=== PATIENT | female | born 1935 | race Caucasian/White ===

== ENCOUNTER 2017-05-19 03:53 | Observation (INO) | payer MEDICARE ==
[2017-05-19 04:18] LABS: BASO % 0.5 % (0-6); EOS % 3.7 % (0-6); GRAN % 56.6 % (47-80); HEMATOCRIT 44.5 % (35.0-47.0); HEMOGLOBIN 14.8 gm/dl (11.6-16.0); LYMPH % 26.3 % (16-45); MEAN CELL VOLUME 90.1 fl (81-97); MEAN CORPUSCULAR HEMOGLOBIN 29.9 pg (27-33); MEAN CORPUSCULAR HGB CONC 33.3 g/dl (32-36); MEAN PLATELET VOLUME 10.2 fl (7.4-10.4); MONO % 12.9 % (0-9); PLATELET COUNT 198 K/uL (130-400); RED BLOOD COUNT 4.94 M/uL (3.80-5.40); RED CELL DISTRIBUTION WIDTH 12.9 % (11.5-14.5); WHITE BLOOD COUNT W/O DIFF 5.8 K/uL (4.2-12.2)
[2017-05-19] MEDS: NITROGLYCERIN 0.4MG SL TABLET #25 BTL SL PRN ×2 (04:20→04:26)
--- NOTE | 2017-05-19 04:24 | Emergency Department Record ---
History of Present Illness - General Chief Complaint: Chest Pain Stated Complaint: CHEST PAIN Time Seen by Provider: 05/19/17 04:02 Source: Patient Mode of Arrival: EMS Limitations: No limitations - History of Present Illness Initial Comments: pt awakened w cp that is hard in her l chest. she has no n/sob/diaphoresis or radiation of pain. she took 2 ntg without relief and called 911. paramedics gave her 324mg of asa and another ntg. Onset/Timin -: Hour(s) Onset: Awoke with symptoms Pain Location: Substernal, Left chest Pain Radiation: None Severity: Mild Severity scale (1-10): 6 Quality: Other Consistency: Constant Improves With: Nothing Worsens With: Nothing Treatments Prior to Arrival: Aspirin, Nitroglycerin - Related Data Home Medications Medication Instructions Recorded Confirmed Last Taken Acetaminophen [Tylenol 325Mg] 325 mg PO NOW 05/19/17 05/19/17 Unknown Clotrimazole [Itch Relief] 15 gm TP ASDIR 05/19/17 05/19/17 Unknown Diclofenac Sodium [Voltaren] 100 gm TP ASDIR 05/19/17 05/19/17 Unknown Fluticasone Propionate [Flonase] 2 spray EACH NARES DAILY 05/19/17 05/19/17 Unknown Hydrocortisone [Proctozone-Hc] 30 gm TP ASDIR 05/19/17 05/19/17 Unknown Multivitamin [Multi-Vitamin Daily] 1 each PO DAILY 05/19/17 05/19/17 Unknown Lamar-3 Fatty Acids/Fish Oil [Fish 1,200 mg PO DAILY 05/19/17 05/19/17 Unknown Oil 1,000 mg Capsule] Ranolazine [Ranexa] 500 mg PO BID 05/19/17 05/19/17 Unknown Allergies Allergy/AdvReac Type Severity Reaction Status Date / Time amoxicillin Allergy PT UNSURE Verified 10/02/15 22:44 OF REACTION amoxicillin trihydrate Allergy PT UNSURE Verified 10/02/15 22:44 [From Augmentin] OF REACTION azithromycin Allergy PT UNSURE Verified 10/02/15 22:44 OF REACTION cephalexin Allergy PT UNSURE Verified 10/02/15 22:44 OF REACTION clindamycin Allergy PT UNSURE Verified 10/02/15 22:44 OF REACTION hydrocodone bitartrate Allergy PT UNSURE Verified 10/02/15 22:44 [From Vicodin] OF REACTION potassium clavulanate Allergy PT UNSURE Verified 10/02/15 22:44 [From Augmentin] OF REACTION shrimp Allergy NAUSEA Verified 05/19/17 04:13 Travel Screening - Travel/Exposure Within Last 30 Days Have you traveled within the last 30 days?: No - Travel/Exposure Within Last Year Have you traveled outside the [place] in the last year?: No - Additonal Travel Details Have you been exposed to anyone with a communicable illness?: No - Travel Symptoms Symptom Screening: None Review of Systems Reviewed: No additional complaints except as noted below Constitutional: Reports: As per HPI. Denies: Chills, Fever, Malaise, Night sweats, Weakness, Weight change Eyes: Reports: As per HPI. Denies: Eye discharge, Eye pain, Photophobia, Vision change ENT: Reports: As per HPI. Denies: Congestion, Dental pain, Ear pain, Epistaxis , Hearing loss, Throat pain Respiratory: Reports: As per HPI. Denies: Cough, Dyspnea, Hemoptysis, Stridor, Wheezes Cardiovascular: Reports: As per HPI. Denies: Arrhythmia, Chest pain, Dyspnea on exertion, Edema, Murmurs, Orthopnea, Palpitations, Paroxysmal nocturnal dyspnea, Rheumatic Fever, Syncope Endocrine: Reports: As per HPI. Denies: Fatigue, Heat or cold intolerance, Polydipsia, Polyuria Gastrointestinal: Reports: As per HPI. Denies: Abdominal pain, Constipation, Diarrhea, Hematemesis, Hematochezia, Melena, Nausea, Vomiting Genitourinary: Reports: As per HPI. Denies: Abnormal menses, Discharge, Dyspareunia, Dysuria, Frequency, Hematuria, Incontinence, Retention, Urgency Musculoskeletal: Reports: As per HPI. Denies: Arthralgia, Back pain, Gout, Joint swelling, Myalgia, Neck pain Skin: Reports: As per HPI. Denies: Bruising, Change in color, Change in hair/ nails, Lesions, Pruritus, Rash Neurological: Reports: As per HPI. Denies: Abnormal gait, Confusion, Headache, Numbness, Paresthesias, Seizure, Tingling, Tremors, Vertigo, Weakness Psychiatric: Reports: As per HPI. Denies: Anxiety, Auditory hallucinations, Depression, Homicidal thoughts, Suicidal thoughts, Visual hallucinations Hematological/Lymphatic: Reports: As per HPI. Denies: Anemia, Blood Clots, Easy bleeding, Easy bruising, Swollen glands Past Medical History - SOCIAL HISTORY Smoking Status: Never smoker Alcohol Use: None Alcohol Use Comment: "never" Drug Use: None - RESPIRATORY Hx Respiratory Disorders: No - CARDIOVASCULAR Hx Cardio Disorders: Yes Hx Heart Attack: Yes (x2) Hx Hypertension: Yes - NEURO Hx Neuro Disorders: No - GI Hx GI Disorders: No - Hx Genitourinary Disorders: No - ENDOCRINE Hx Endocrine Disorders: Yes Hx Diabetes: Yes (DM I) Hx Thyroid Disease: Yes (Hypothyroid) - MUSCULOSKELETAL Hx Musculoskeletal Disorders: Yes Hx Arthritis: Yes - PSYCH Hx Psych Problems: Yes Hx Depression: Yes - HEMATOLOGY/ONCOLOGY Hx Hematology/Oncology Disorders: No Family Medical History Any Significant Family History?: Yes Hx Cancer: Mother Hx Diabetes: Father, Mother, Grandparents Hx Heart Disease: Brother/Sister Hx Stroke: Grandparents Physical Exam - General General Appearance: Alert, Oriented x3, Cooperative, Mild distress - Head Head exam: Normal inspection - Eye Eye exam: Normal appearance, PERRL, EOMI Pupils: Normal accommodation - ENT ENT exam: Normal exam, Mucous membranes moist, Normal external ear exam, Normal orophraynx Ear exam: Normal external inspection. negative: External canal tenderness Nasal Exam: Normal inspection. negative: Discharge, Sinus tenderness Mouth exam: Normal external inspection, Tongue normal Teeth exam: Normal inspection. negative: Dental caries Throat exam: Normal inspection. negative: Tonsillar erythema, Tonsillar exudate - Neck Neck exam: Normal inspection, Full ROM. negative: Tenderness - Respiratory Respiratory exam: Normal lung sounds bilaterally. negative: Respiratory distress - Cardiovascular Cardiovascular Exam: Regular rate, Normal rhythm, Normal heart sounds - GI/Abdominal GI/Abdominal exam: Soft, Normal bowel sounds. negative: Tenderness - Rectal Rectal exam: Deferred - exam: Deferred - Extremities Extremities exam: Normal inspection, Full ROM, Normal capillary refill. negative: Tenderness - Back Back exam: Reports: Normal inspection, Full ROM. Denies: Muscle spasm, Rash noted, Tenderness - Neurological Neurological exam: Alert, CN II-XII intact, Normal gait, Oriented X3 - Psychiatric Psychiatric exam: Normal affect, Normal mood - Skin Skin exam: Dry, Intact, Normal color, Warm Course Vital Signs 05/19/17 05/19/17 04:05 04:07 Temperature 98.0 F 98.0 F Pulse Rate [ 66 Pulse Ox Probe] Respiratory 20 20 Rate Blood Pressure 176/82 [Right Arm] Pulse Ox 97 97 - Reevaluation(s) Reevaluation #1: 05/19/17 05:05 pts pain is gone after ntg. i attempted to find results of pts stress test that she had last wed. but was unable to get them. discussed pt w dr lopez who also could not access results and stated to just keep pt here. Reevaluation #2: 05/19/17 05:20 pt prefers to stay here also . Medical Decision Making - Lab Data Result diagrams: 05/19/17 03:55 05/19/17 03:55 Disposition Disposition: Admit Clinical Impression: Chest pain Qualifiers: Chest pain type: unspecified Qualified Code(s): R07.9 - Chest pain, unspecified Disposition: Still a Patient at [facility] Decision to Admit: Admit from ER Decision to Admit Date: 05/19/17 Decision to Admit Time: 05:09 Forms: Patient Portal Access Quality - Quality Measures Quality Measures: N/A - Blood Pressure Screening Does Patient Have Any of the Following: No Blood Pressure Classification: Pre-Hypertensive BP Reading Systolic Measurement: 122 Diastolic Measurement: 77 Screening for High Blood Pressure: < Pre-Hypertensive BP, F/U Documented > [ [id number]] Pre-Hypertensive Follow-up Interventions: Referral to alternative/primary care provider.
[2017-05-19 04:40] LABS: BLOOD UREA NITROGEN 48.6 mg/dL (17.4-49.2); EST GLOMERULAR FILTRATION RATE 56 mL/min; GLUCOSE,RANDOM 227 mg/dL (74-109)
[2017-05-19 04:41] LABS: CKMB 3.4 ng/mL (<3.77); CREATINE PHOSPHOKINASE 72 U/L (26-192); NTpro B-NATRIURETIC PEPTIDE 1895 pg/mL (<450); TROPONIN I < 0.30 ng/mL (0.00-0.300)
[2017-05-19] MEDS ORDERED: ACETAMINOPHEN 325 MG TAB PO SCH (05:30)
[2017-05-19] MEDS ORDERED: LEVOTHYROXINE SODIUM 100 MCG TABLET PO SCH (07:00)
[2017-05-19] MEDS ORDERED: NOVOLOG FLEXPEN (INSULIN ASPART) 100 UNITS/ML SQ SCH (08:30)
[2017-05-19] MEDS ORDERED: HUMULIN N KWIKPEN 100 UNIT/ML SQ SCH ×2 (08:30→11:33)
--- NOTE | 2017-05-19 08:33 | RADIOLOGY REPORT ---
EXAM: CHEST, TWO VIEWS HISTORY: DIFFICULTY BREATHING. TECHNIQUE: Frontal and lateral views of the chest were performed. FINDINGS: The heart size is normal. No pulmonary vascular congestion. No infiltrate or pleural effusion. The osseous structures are normal. IMPRESSION: NO ACUTE DISEASE PROCESS. JOB NUMBER: [id number] MTDD
[2017-05-19] MEDS ORDERED: RANOLAZINE 500 MG PO SCH (10:00)
[2017-05-19] MEDS ORDERED: ASPIRIN 325 MG TAB ENTERIC-COATED PO SCH (10:00)
[2017-05-19] MEDS ORDERED: BENAZEPRIL 20 MG TABLET PO SCH (10:00)
[2017-05-19] MEDS ORDERED: CLOPIDOGREL 75MG TABLET PO SCH (10:00)
[2017-05-19] MEDS ORDERED: METFORMIN 500 MG TABLET PO SCH (10:00)
[2017-05-19] MEDS ORDERED: METOPROLOL TART 50 MG TABLET PO SCH (10:00)
[2017-05-19] MEDS ORDERED: METFORMIN 500 MG TABLET PO PRN (11:34)
[2017-05-19 12:06] LABS: CKMB 3.8 ng/mL (<3.77)
[2017-05-19 12:11] LABS: TROPONIN I < 0.30 ng/mL (0.00-0.300)
--- NOTE | 2017-05-19 13:08 | History & Physical ---
History of Present Illness - Date of Service Date of Service for History & Physical: 05/19/17 - History of Present Illness Admitting Diagnosis: chest pain History of Present Illness: 82 y/o female with CC chest pain admitted for atypical chest pain. Past medical history includes NE x2, HTN, DM (onset age 29), hypothyroidism, osteoarthritis, depression. Prior to arrival awoke at 2am from sleep with midsternal chest pain and pressure. Denied nausea, shortness of breath, diaphoresis or dizziness at that time. Per ER report had 3 doses of nitroglycerin and 325 ASA between EMS and ER before chest pain resolved. Reports she has had a heart attack before and the pain this episode was similar. Has seen [facility] for recent onset of new chest heaviness in which she had a stress test done last week with a follow up appt with Dr Dorado this coming Friday. She was not aware of the results of the stress test and was supposed to discuss findings at her next appointment. Denies any recent illness, fever, cough, sick contacts. Does have long standing history of DM diagnosed in her early 30's. Follows a very strategic regime at home with accu checks 6 times daily, PRN dosing of Metformin based on lunch and dinner blood sugars and morning regimen of NPH 10 units and Humalog 5 units daily. While in the ED VSS, CXR negative for acute process. EKG NSR, LVH. BNP 1895. CKMB 3.4, troponin <0.30. D-dimer 0.50. CBC/CMP grossly unremarkable. Chest pain resolved after 3rd dose of nitro. Dr Milligan contacted by the ED attending and was not able to access recent stress test and advised we admit the patient for his partner Dr Palumbo to see today. Admitted for cardiac enzymes and cardiology consult 05/19/17- resting in bed comfortably. Denies any further chest pain or related symptoms since arrival. Has been overall feeling well, no new concerns. No new nursing concerns. PCP: Dr Worthington [employer] Pilot: Dr Dorado Travel Screening - Travel/Exposure Within Last 30 Days Have you traveled within the last 30 days?: No - Travel/Exposure Within Last Year Have you traveled outside the [place] in the last year?: No - Additonal Travel Details Have you been exposed to anyone with a communicable illness?: No - Travel Symptoms Symptom Screening: None Review of Systems Constitutional: Reports: As per HPI. Denies: Chills, Fever, Malaise, Night sweats, Weakness, Weight change Eyes: Reports: As per HPI. Denies: Eye discharge, Eye pain, Photophobia, Vision change ENT: Reports: As per HPI. Denies: Congestion, Dental pain, Ear pain, Epistaxis , Hearing loss, Throat pain Respiratory: Reports: As per HPI. Denies: Cough, Dyspnea, Hemoptysis, Stridor, Wheezes Cardiovascular: Reports: As per HPI. Denies: Arrhythmia, Chest pain, Dyspnea on exertion, Edema, Murmurs, Orthopnea, Palpitations, Paroxysmal nocturnal dyspnea, Rheumatic Fever, Syncope Endocrine: Reports: As per HPI. Denies: Fatigue, Heat or cold intolerance, Polydipsia, Polyuria Gastrointestinal: Reports: As per HPI. Denies: Abdominal pain, Constipation, Diarrhea, Hematemesis, Hematochezia, Melena, Nausea, Vomiting Genitourinary: Reports: As per HPI. Denies: Abnormal menses, Discharge, Dyspareunia, Dysuria, Frequency, Hematuria, Incontinence, Retention, Urgency Musculoskeletal: Reports: As per HPI. Denies: Arthralgia, Back pain, Gout, Joint swelling, Myalgia, Neck pain Skin: Reports: As per HPI. Denies: Bruising, Change in color, Change in hair/ nails, Lesions, Pruritus, Rash Neurological: Reports: As per HPI. Denies: Abnormal gait, Confusion, Headache, Numbness, Paresthesias, Seizure, Tingling, Tremors, Vertigo, Weakness Psychiatric: Reports: As per HPI. Denies: Anxiety, Auditory hallucinations, Depression, Homicidal thoughts, Suicidal thoughts, Visual hallucinations Hematological/Lymphatic: Reports: As per HPI. Denies: Anemia, Blood Clots, Easy bleeding, Easy bruising, Swollen glands Past Medical History - SOCIAL HISTORY Smoking Status: Never smoker Alcohol Use: None Drug Use: None - RESPIRATORY Hx Respiratory Disorders: No - CARDIOVASCULAR Hx Cardio Disorders: Yes Hx Heart Attack: Yes (x2) Hx Hypertension: Yes - NEURO Hx Neuro Disorders: No - GI Hx GI Disorders: No - Hx Genitourinary Disorders: No - ENDOCRINE Hx Endocrine Disorders: Yes Hx Diabetes: Yes (DM I) Hx Thyroid Disease: Yes (Hypothyroid) - MUSCULOSKELETAL Hx Musculoskeletal Disorders: Yes Hx Arthritis: Yes - PSYCH Hx Psych Problems: Yes Hx Depression: Yes - HEMATOLOGY/ONCOLOGY Hx Hematology/Oncology Disorders: No Family Medical History Any Significant Family History?: Yes Hx Cancer: Mother Hx Diabetes: Father, Mother, Grandparents Hx Heart Disease: Brother/Sister Hx Stroke: Grandparents H&P Meds/Allergies - Allergies Allergies: Allergies Allergy/AdvReac Type Severity Reaction Status Date / Time amoxicillin Allergy PT UNSURE Verified 10/02/15 22:44 OF REACTION amoxicillin trihydrate Allergy PT UNSURE Verified 10/02/15 22:44 [From Augmentin] OF REACTION azithromycin Allergy PT UNSURE Verified 10/02/15 22:44 OF REACTION cephalexin Allergy PT UNSURE Verified 10/02/15 22:44 OF REACTION clindamycin Allergy PT UNSURE Verified 10/02/15 22:44 OF REACTION hydrocodone bitartrate Allergy PT UNSURE Verified 10/02/15 22:44 [From Vicodin] OF REACTION potassium clavulanate Allergy PT UNSURE Verified 10/02/15 22:44 [From Augmentin] OF REACTION shrimp Allergy NAUSEA Verified 05/19/17 04:13 - Home Medications Home Medications Medication Instructions Recorded Confirmed Last Taken Acetaminophen [Tylenol 325Mg] 325 mg PO NOW 05/19/17 05/19/17 Unknown Clotrimazole [Itch Relief] 15 gm TP ASDIR 05/19/17 05/19/17 Unknown Diclofenac Sodium [Voltaren] 100 gm TP ASDIR 05/19/17 05/19/17 Unknown Fluticasone Propionate [Flonase] 2 spray EACH NARES DAILY 05/19/17 05/19/17 Unknown Hydrocortisone [Proctozone-Hc] 30 gm TP ASDIR 05/19/17 05/19/17 Unknown Multivitamin [Multi-Vitamin Daily] 1 each PO DAILY 05/19/17 05/19/17 Unknown [place]roberts-3 Fatty Acids/Fish Oil [Fish 1,200 mg PO DAILY 05/19/17 05/19/17 Unknown Oil 1,000 mg Capsule] Ranolazine [Ranexa] 500 mg PO BID 05/19/17 05/19/17 Unknown - Active Medications Active Medications: Current Medications Acetaminophen (Tylenol 325mg) 325 mg PO NOW [facility] Aspirin (Ecotrin (Ec)) 325 mg PO DAILY FE Last Admin: 05/19/17 10:02 Dose: 325 mg Benazepril HCl (Lotensin) 5 mg PO DAILY [facility] Last Admin: 05/19/17 10:05 Dose: 5 mg Clopidogrel Bisulfate (Plavix) 75 mg PO DAILY [facility] Last Admin: 05/19/17 10:07 Dose: 75 mg Insulin Aspart (Novolog Flexpen) 5 unit SQ 0745 [facility] Last Admin: 05/19/17 08:32 Dose: 5 unit Insulin Human NPH (Humulin N Kwikpen) 10 unit SQ 0745 [facility] Levothyroxine Sodium (Synthroid) 100 mcg PO DAILYAC [facility] Last Admin: 05/19/17 06:50 Dose: 100 mcg Metformin HCl (Glucophage Ir) 500 mg PO BID PRN PRN Reason: SUGAR >250 BEFORE LUNCH/DINNER Metoprolol Tartrate (Lopressor) 50 mg PO BID [facility] Last Admin: 05/19/17 10:04 Dose: 50 mg Patient Own Med: Ranolazine (Ranexa) 500 Mg 1 each PO BID [facility] Last Admin: 05/19/17 10:08 Dose: Not Given Patient Own Med: (Rosuvastatin 20 Mg) 1 each PO QHS [facility] Physical Exam - Vital Signs Vital Signs: Vital Signs - Last 24 Hrs Temp Pulse Resp BP Pulse Ox 05/19/17 11:30 98.1 F 58 L 18 141/72 97 05/19/17 09:00 62 18 05/19/17 07:30 98.3 F 62 18 148/85 98 05/19/17 06:16 16 05/19/17 05:56 97.9 F 62 18 162/84 98 05/19/17 05:50 98 - General General Appearance: Alert, Oriented x3, Cooperative, No acute distress Limitations: No limitations - Head Head exam: Normal inspection - Eye Eye exam: Normal appearance, PERRL, EOMI Pupils: Normal accommodation - ENT ENT exam: Normal exam, Mucous membranes moist, Normal external ear exam, Normal orophraynx Ear exam: Normal external inspection. negative: External canal tenderness Nasal Exam: Normal inspection. negative: Discharge, Sinus tenderness Mouth exam: Normal external inspection, Tongue normal Teeth exam: Normal inspection. negative: Dental caries Throat exam: Normal inspection. negative: Tonsillar erythema, Tonsillar exudate - Neck Neck exam: Normal inspection, Full ROM. negative: Tenderness - Respiratory Respiratory exam: Normal lung sounds bilaterally. negative: Respiratory distress - Cardiovascular Cardiovascular Exam: Regular rate, Normal rhythm, Normal heart sounds, Diastolic murmur, Systolic murmur Peripheral Pulses: 2+: Dorsalis Pedis (R), Dorsalis Pedis (L) - GI/Abdominal GI/Abdominal exam: Soft, Normal bowel sounds. negative: Tenderness - Rectal Rectal exam: Deferred - exam: Deferred - Extremities Extremities exam: Normal inspection, Full ROM, Normal capillary refill. negative: Tenderness - Back Back exam: Reports: Normal inspection, Full ROM. Denies: Muscle spasm, Rash noted, Tenderness - Neurological Neurological exam: Alert, CN II-XII intact, Normal gait, Oriented X3 - Psychiatric Psychiatric exam: Normal affect, Normal mood - Skin Skin exam: Dry, Intact, Normal color, Warm Results - Labs Result Diagrams: 05/19/17 03:55 05/19/17 03:55 Labs Last 24 Hours: Laboratory Results - last 24 hr 05/19/17 05/19/17 07:30 11:30 POC Glucose 210 H CK-MB (CK-2) 3.8 H Troponin I < 0.30 - Imaging and Cardiology Chest x-ray Status: Report reviewed (negative for acute process) VTE H&P Assessment - Risk for VTE Risk for VTE: Yes Risk Level: Low Risk Assessment Date: 05/19/17 Risk Assessment Time: 13:09 VTE Orders Placed or Will Be Placed: Yes Plan - Detailed Diagnosis and Plan (1) Chest pain Current Visit: Yes Status: Acute Qualifiers: Chest pain type: unspecified Qualified Code(s): R07.9 - Chest pain, unspecified Base Code: R07.9 - CHEST PAIN, UNSPECIFIED Comment: 05/19/17 - no further chest pain since admission - EKG- NSR, LVH, no previous comparison available for review - CXR negative for acute process - labs grossly unremarkable for acute infectious process - troponin <0.30, CKMB 3.4 -> 3.8 - BNP 1895- denies any recent weight gain or edema, activity intolerance - cardiology consult - serial cardiac enzymes (2) Diabetes mellitus Current Visit: Yes Status: Acute Base Code: E11.9 - TYPE 2 DIABETES MELLITUS WITHOUT COMPLICATIONS Comment: 05/19/17 - stable - accu check AC/HS - will follow home regimen of med dosing (3) Full code status Current Visit: Yes Status: Acute Base Code: Z78.9 - OTHER SPECIFIED HEALTH STATUS Comment: 05/19/17- will remain full code during this hospitalization (4) DVT prophylaxis Current Visit: Yes Status: Acute Base Code: [id number] - Comment: 05/19/17- nursing to encourage frequent ambulation
--- NOTE | 2017-05-19 13:51 | Discharge Summary ---
Providers Discharge Summary Date: 05/19/17 Date of admission: 05/19/17 05:37 Expected Date of Discharge: 05/19/17 Attending physician: MARLY MCBRIDE Primary care physician: Kandi Worthington Physical Exam - Vital Signs Vital Signs: Vital Signs - Last 24 Hrs Temp Pulse Pulse Resp BP Pulse Ox 05/19/17 13:17 58 L 16 99 05/19/17 11:30 98.1 F 58 L 18 141/72 97 05/19/17 09:00 62 18 05/19/17 07:30 98.3 F 62 18 148/85 98 05/19/17 06:16 16 05/19/17 05:56 97.9 F 62 18 162/84 98 05/19/17 05:50 98 - General General Appearance: Alert, Oriented x3, Cooperative, No acute distress Limitations: No limitations - Head Head exam: Normal inspection - Eye Eye exam: Normal appearance, PERRL, EOMI Pupils: Normal accommodation - ENT ENT exam: Normal exam, Mucous membranes moist, Normal external ear exam, Normal orophraynx Ear exam: Normal external inspection. negative: External canal tenderness Nasal Exam: Normal inspection. negative: Discharge, Sinus tenderness Mouth exam: Normal external inspection, Tongue normal Teeth exam: Normal inspection. negative: Dental caries Throat exam: Normal inspection. negative: Tonsillar erythema, Tonsillar exudate - Neck Neck exam: Normal inspection, Full ROM. negative: Tenderness - Respiratory Respiratory exam: Normal lung sounds bilaterally. negative: Respiratory distress - Cardiovascular Cardiovascular Exam: Regular rate, Normal rhythm, Normal heart sounds, Diastolic murmur, Systolic murmur Peripheral Pulses: 2+: Dorsalis Pedis (R), Dorsalis Pedis (L) - GI/Abdominal GI/Abdominal exam: Soft, Normal bowel sounds. negative: Tenderness - Rectal Rectal exam: Deferred - exam: Deferred - Extremities Extremities exam: Normal inspection, Full ROM, Normal capillary refill. negative: Tenderness - Back Back exam: Reports: Normal inspection, Full ROM. Denies: Muscle spasm, Rash noted, Tenderness - Neurological Neurological exam: Alert, CN II-XII intact, Normal gait, Oriented X3 - Psychiatric Psychiatric exam: Normal affect, Normal mood - Skin Skin exam: Dry, Intact, Normal color, Warm Hospitalization - Hospitalization Admission Diagnosis: chest pain - Problem List/Discharge Diagnosis (1) Chest pain Current Visit: Yes Status: Acute Discharge Diagnosis: Chest pain type: unspecified Qualified Code(s): R07.9 - Chest pain, unspecified Base Code: R07.9 - CHEST PAIN, UNSPECIFIED Comment: 05/19/17 - no further chest pain since admission - EKG- NSR, LVH, no previous comparison available for review - CXR negative for acute process - labs grossly unremarkable for acute infectious process - troponin <0.30, CKMB 3.4 -> 3.8 - BNP 1895- denies any recent weight gain or edema, activity intolerance - serial cardiac enzymes - cardiology consult today, advised transfer to [facility] for cardiac cath due to unstable angina (2) Diabetes mellitus Current Visit: Yes Status: Acute Base Code: E11.9 - TYPE 2 DIABETES MELLITUS WITHOUT COMPLICATIONS Comment: 05/19/17 - stable - accu check AC/HS - will follow home regimen of med dosing (3) Full code status Current Visit: Yes Status: Acute Base Code: Z78.9 - OTHER SPECIFIED HEALTH STATUS Comment: 05/19/17- will remain full code during this hospitalization (4) DVT prophylaxis Current Visit: Yes Status: Acute Base Code: [id number] - Comment: 05/19/17- nursing to encourage frequent ambulation - Hospitalization Course Disposition: Acute Care Hospital Transfer Hospital Course: 82 y/o female with CC chest pain admitted for atypical chest pain. Past medical history includes IN x2, HTN, DM (onset age 29), hypothyroidism, osteoarthritis, depression. Prior to arrival awoke at 2am from sleep with midsternal chest pain and pressure. Denied nausea, shortness of breath, diaphoresis or dizziness at that time. Per ER report had 3 doses of nitroglycerin and 325 ASA between EMS and ER before chest pain resolved. Reports she has had a heart attack before and the pain this episode was similar. Has seen [facility] for recent onset of new chest heaviness in which she had a stress test done last week with a follow up appt with Dr Dorado this coming Friday. She was not aware of the results of the stress test and was supposed to discuss findings at her next appointment. Denies any recent illness, fever, cough, sick contacts. Does have long standing history of DM diagnosed in her early 30's. Follows a very strategic regime at home with accu checks 6 times daily, PRN dosing of Metformin based on lunch and dinner blood sugars and morning regimen of NPH 10 units and Humalog 5 units daily. While in the ED VSS, CXR negative for acute process. EKG NSR, LVH. BNP 1895. CKMB 3.4, troponin <0.30. D-dimer 0.50. CBC/CMP grossly unremarkable. Chest pain resolved after 3rd dose of nitro. Dr Milligan contacted by the ED attending and was not able to access recent stress test and advised we admit the patient for his partner Dr Palumbo to see today. Admitted for cardiac enzymes and cardiology consult 05/19/17- resting in bed comfortably. Denies any further chest pain or related symptoms since arrival. Has been overall feeling well, no new concerns. No new nursing concerns. PCP: Dr Worthington Respiratory Care Specialist: Dr Dorado Abnormal Labs: Abnormal Lab Results 05/19/17 05/19/17 Range/Units 07:30 11:30 POC Glucose 210 H (70-110) mg/dL CK-MB (CK-2) 3.8 H (<3.77) ng/mL Condition at Discharge: (3) Guarded Discharge Medications - Discharge Medications Home Medications: Ambulatory Orders Aspirin Chewable 81 mg PO DAILY 10/02/15 [Last Taken Unknown] Benazepril HCl [Lotensin] 5 mg PO DAILY 10/02/15 [Last Taken Unknown] Clopidogrel Bisulfate [Plavix] 75 mg PO DAILY 10/02/15 [Last Taken Unknown] Insulin Lispro [Humalog] 5 unit SQ DAILYWM 10/02/15 [Last Taken Unknown] Insulin NPH Human Isophane [Humulin N] 10 unit SQ DAILYWM 10/02/15 [Last Taken Unknown] Levothyroxine Sodium [Synthroid] 100 mcg PO DAILY 10/02/15 [Last Taken Unknown] Metformin HCl 500 mg PO BID PRN 10/02/15 [Last Taken Unknown] Metoprolol Tartrate [Lopressor] 50 mg PO BID 10/02/15 [Last Taken Unknown] Nitroglycerin [Nitrostat] 0.4 mg SL ASDIR PRN 10/02/15 [Last Taken Unknown] Rosuvastatin Calcium [Crestor] 20 mg PO DAILY 10/02/15 [Last Taken Unknown] Acetaminophen [Tylenol 325Mg] 325 mg PO NOW 05/19/17 [Last Taken Unknown] Clotrimazole [Itch Relief] 15 gm TP ASDIR 05/19/17 [Last Taken Unknown] Diclofenac Sodium [Voltaren] 100 gm TP ASDIR 05/19/17 [Last Taken Unknown] Fluticasone Propionate [Flonase] 2 spray EACH NARES DAILY 05/19/17 [Last Taken Unknown] Hydrocortisone [Proctozone-Hc] 30 gm TP ASDIR 05/19/17 [Last Taken Unknown] Multivitamin [Multi-Vitamin Daily] 1 each PO DAILY 05/19/17 [Last Taken Unknown] [place]-3 Fatty Acids/Fish Oil [Fish Oil 1,000 mg Capsule] 1,200 mg PO DAILY 05/19 [Last Taken Unknown] Ranolazine [Ranexa] 500 mg PO BID 05/19/17 [Last Taken Unknown] Discharge Plan - Discharge Instructions Activity at Discharge: Increase Activity as Tolerated Diet at Discharge: Low Fat, Low Cholesterol Quality Measures - Quality Measures Quality Measures: Advance Directives, Documentation of Current Medications in Medical Record, Elder Maltreatment Screen and Follow-Up Plan, Screening for High Blood Pressure and F/U Documented - Current Medications Quality Measure: Measure #130: Documentation of Current Medications Documentation of Current Medications: <Current Medications Documented/Reviewed> [G8753] - Blood Pressure Screening Quality Measure: Screening for High Blood Pressure and Follow-Up Documented Does Patient Have Any of the Following: Active Dx of HTN Blood Pressure Classification: Hypertensive Reading Systolic Measurement: 148 Diastolic Measurement: 63 Screening for High Blood Pressure: Patient Exclusion, Hx of HTN [G9744] - Advance Directives Quality Measure: Measure #47: Care Plan Advance Directives Established: No Advance Directives Information Provided To Patient: No Advance Directives on File: No Advance Care Planning: <Care Plan/Decision Maker Documented; Discussed & Documented> [1123] - Elder Abuse Suspicion Index Screening: Elder Abuse Suspicion Index Screening Rely on people for bathing, dressing, shopping, banking, etc: No Prevented from getting food, clothes, medication, etc: No Made to feel shamed or threatened by someone: No Forced to sign papers or use money against will: No Feel afraid, touched in ways not wanted or hurt physically: No Poor eye contact, withdrawn, malnourished, cuts or bruises: No Screening Result: Negative result EASI Reference Information: Alo LIZARRAGA, Tito C, Alverto D, Maryann Rao.Development and validation of a tool to assist physicians identification of elder abuse: The Elder Abuse Suspicion Index (EASI ). Journal of Elder Abuse and Neglect, 2008; 20 (3): 276-300. - Elder Maltreatment Screen Quality Measures: Elder Maltreatment Screen and Follow-Up Plan Elder Maltreatment Screen: <Negative, No Follow-Up Plan Required> [G8734]
--- NOTE | 2017-05-19 14:17 | Medical Records Consult ---
DATE OF CONSULTATION: 05/19/17 Vanessa Gonzalez is an 82-year-old female status post coronary bypass surgery eleven years ago at the hands of Dr. Vincenzo Kelsey. She had a heart catheterization in 2011 when her BAKER graft to the LAD was patent as well as two saphenous vein grafts. Dr. Tinajero at that time noted very small round valley vessels not amenable to any type of intervention. She improved following the catheterization as far as episodes of chest discomfort, but over the past month or so she has been having episodes of chest discomfort four out of seven times usually occur at night. She takes sublingual Nitroglycerin with usual immediate relief of the discomfort. At the time I saw her a week ago she was on good medical therapy with long acting nitrates as well as a statin, beta lashay and Plavix. I scheduled her for a Cardiolite stress test and the stress test was done two days later, her ejection fraction was 59% and it was interpreted as a moderate abnormal study with a moderate area of ischemia in the anterior lateral wall. This was read by Dr. Milligan. The patient was scheduled to see Dr. Dorado on this coming Friday, but she had an episode of severe chest discomfort in the middle of the night at 3:00 o' clock unrelieved by two Nitroglycerin. She came to [facility] and she was admitted. There was no evidence of an acute myocardial infarction by enzymes or electrocardiogram. At the time I saw her which was 1:00 o'clock in the afternoon on this date she was stable. I had a long discussion with her regarding options, she really did not want to undergo a cardiac catheterization, but I felt that with this episode of rather severe chest discomfort she would be better off at least having catheterization done. She reluctantly agreed to that and she agreed to be transferred to [facility]. Further history: The patient's cardiac risk factors include family history of heart disease, hyperlipidemia, no hypertension, no diabetes. Further review of systems: HEENT: The patient has bilateral hearing aids. Negative for positional vertigo. Respiratory: The patient has occasional wheezing. No other respiratory problem. Sleep history: Positive for restless sleep. Cardiac: Status post coronary bypass surgery with the most recent catheterization several years ago showing patent bypass grafts. Abdominal: She denies any type of GI problem. PHYSICAL EXAMINATION: Reveals a well nourished, well hydrated 82-year-old female in no acute distress. She weighs 136 pounds. Her pulse is 62. HEENT: Unremarkable. LUNGS: Clear to auscultation at all listening posts. Mid sternal incision is well healed. HEART: Heart sounds are clear. The first and second sounds are normal. The patient has a Grade 2/6 systolic ejection murmur in the second left intercostal space. IMPRESSION: STATUS POST REMOTE CORONARY BYPASS SURGERY WITH ONGOING CHEST DISCOMFORT AND ABNORMAL CARDIOLITE STRESS TEST. RECOMMENDATION: Based on the fact that she has not responded to Ranexa and that she has an abnormal Cardiolite stress test I thought the best option was to proceed to a more aggressive approach to heart catheterization. Suspicion of anything is that maybe one or two of the bypass grafts have developed obstructive disease which may be amenable to percutaneous intervention. It does not appear that based on the previous catheterization that anything can be done to her round valley vessels. JOB NUMBER: [id number] MTDD
[2017-05-19] MEDS ORDERED: PATIENT OWN MED: ROSUVASTATIN 20 MG PO SCH (22:00)
== END 2017-05-19 17:30 | disposition short-term general hospital (02) ==
LOC: ER 03:53 → MEDSURG 05:37
PROVIDERS: ADMIT Family Medicine; ATTEND Family Medicine
DX: R07.9 Chest pain, unspecified (principal); I25.810 Atherosclerosis of coronary artery bypass graft(s) without angina pectoris; E11.9 Type 2 diabetes mellitus without complications; Z79.4 Long term (current) use of insulin; Z79.84 Long term (current) use of oral hypoglycemic drugs; E03.9 Hypothyroidism, unspecified; Z79.02 Long term (current) use of antithrombotics/antiplatelets
CPT/HCPCS: 99285 ×2; 94760; 82550; 85025; 82553; 84484; 80048; 36416; 82948; 85379; 83880; 71020; 94761; 93005; 93010; G0378; J3490; 99236

== ENCOUNTER 2017-06-22 16:35 | Observation (INO) | payer MEDICARE ==
[2017-06-22] MEDS ORDERED: MECLIZINE 25 MG TABLET PO ONE (18:39)
--- NOTE | 2017-06-22 18:39 | Emergency Department Record ---
History of Present Illness - General Chief Complaint: Dizziness Stated Complaint: DIZZINESS,ELEVATED BLOOD PRESSURE,WEAKNESS Time Seen by Provider: 06/22/17 18:04 Source: Patient, Family (frandy) Mode of Arrival: Ambulatory - History of Present Illness Initial Comments: The patient had her aortic valve replaced , 10 days ago, at [facility] by an endovascular procedure, and was sent home the next day. She was placed on plavix. She has had poor sleeping habits for the past year and 8 months, since her , which continue to this day. She woke today very early, couldn' t sleep, got up, went back to bed after eating breakfast, and slept 3 hours. While walking around her house around noontime today she developed a gradual onset of dizziness, which she describes as a motion type off balance feeling, along with generalized weakness in all extremities, mostly her legs. She did NOT develop CP, IVAN, N, Diaphoresis, SOB, slurred speech, unilateral weakness, facial droop. Her blood sugars hae been running higher than her usual mid to high 100's around 350 today. She has never had CHF, PE, DVT, CVA. This feeling has remained all day and worsens when she moves around, and greatly subsides with rest, but does not resolve. PMH included a triple CABG 2005, prior HI, IDDM for 49 years, htn controlled, no cholesterol elevation. MD Complaint: Dizziness, Other (generalized weakness) Onset/Timin -: Hour(s) Timing: Unsure Description: Lightheadedness History of Same: No History of Trauma: No Severity: Mild Improves With: Nothing Worsens With: Nothing Associated Symptoms: Denies other symptoms - Related Data Allergies Allergy/AdvReac Type Severity Reaction Status Date / Time amoxicillin Allergy PT UNSURE Verified 10/02/15 22:44 OF REACTION amoxicillin trihydrate Allergy PT UNSURE Verified 10/02/15 22:44 [From Augmentin] OF REACTION azithromycin Allergy PT UNSURE Verified 10/02/15 22:44 OF REACTION cephalexin Allergy PT UNSURE Verified 10/02/15 22:44 OF REACTION clindamycin Allergy PT UNSURE Verified 10/02/15 22:44 OF REACTION hydrocodone bitartrate Allergy PT UNSURE Verified 10/02/15 22:44 [From Vicodin] OF REACTION potassium clavulanate Allergy PT UNSURE Verified 10/02/15 22:44 [From Augmentin] OF REACTION shrimp Allergy NAUSEA Verified 05/19/17 04:13 Travel Screening - Travel/Exposure Within Last 30 Days Have you traveled within the last 30 days?: No Past Medical History - SOCIAL HISTORY Smoking Status: Never smoker Alcohol Use: None Drug Use: None - RESPIRATORY Hx Respiratory Disorders: No - CARDIOVASCULAR Hx Cardio Disorders: Yes Hx Heart Attack: Yes (x2) Hx Hypertension: Yes - NEURO Hx Neuro Disorders: No - GI Hx GI Disorders: No - Hx Genitourinary Disorders: No - ENDOCRINE Hx Endocrine Disorders: Yes Hx Diabetes: Yes (DM I) Hx Thyroid Disease: Yes (Hypothyroid) - MUSCULOSKELETAL Hx Musculoskeletal Disorders: Yes Hx Arthritis: Yes - PSYCH Hx Psych Problems: Yes Hx Depression: Yes - HEMATOLOGY/ONCOLOGY Hx Hematology/Oncology Disorders: No Family Medical History Any Significant Family History?: Yes Hx Cancer: Mother Hx Diabetes: Father, Mother, Grandparents Hx Heart Disease: Brother/Sister Hx Stroke: Grandparents Physical Exam - General General Appearance: Alert, Oriented x3, Cooperative, No acute distress, Other ( pleasant smiling female appearing much younger than her states age) Limitations: No limitations - Head Head exam: Normal inspection - Eye Eye exam: Normal appearance, PERRL Pupils: Normal accommodation - ENT ENT exam: Normal exam, Mucous membranes moist, Normal external ear exam, Normal orophraynx, TM's normal bilaterally Ear exam: Normal external inspection. negative: External canal tenderness Nasal Exam: Normal inspection. negative: Discharge, Sinus tenderness Mouth exam: Normal external inspection, Tongue normal Teeth exam: Normal inspection. negative: Dental caries Throat exam: Normal inspection. negative: Tonsillar erythema, Tonsillar exudate - Neck Neck exam: Normal inspection, Full ROM, Other (no JVD noted). negative: Tenderness - Respiratory Respiratory exam: Normal lung sounds bilaterally. negative: Respiratory distress - Cardiovascular Cardiovascular Exam: Regular rate, Normal rhythm, Normal heart sounds, Systolic murmur - GI/Abdominal GI/Abdominal exam: Soft, Normal bowel sounds. negative: Tenderness - Rectal Rectal exam: Deferred - exam: Deferred - Extremities Extremities exam: Normal inspection, Full ROM, Normal capillary refill. negative: Calf tenderness, Pedal edema, Tenderness - Back Back exam: Reports: Normal inspection, Full ROM. Denies: CVA tenderness (R), CVA tenderness (L), Muscle spasm, Rash noted, Tenderness - Neurological Neurological exam: Alert, CN II-XII intact, Normal gait, Oriented X3, Reflexes normal - Psychiatric Psychiatric exam: Normal affect, Normal mood - Skin Skin exam: Dry, Intact, Normal color, Warm Course Vital Signs 06/22/17 16:50 Temperature 98.2 F Pulse Rate 69 Respiratory 16 Rate Blood Pressure 160/73 Pulse Ox 99 - Reevaluation(s) Reevaluation #1: Up to bathroom with assistance. No change in symptoms. 06/22/17 19:23 Reevaluation #2: The patient has been up to the bathroom twice and to xray once and states her dizziness is greatly improved. Patient was given an egg salad sandwich due to hunger. 06/22/17 20:42 Reevaluation #3: KRYSTAL Winters, [facility] who recommends she have repeat enzymes and see [facility] in the morning who is here in the clinic. KRYSTAL Joel who accepts patient for observation. 06/22/17 20:53 06/22/17 20:58 Medical Decision Making - Management Options MDM Management: Additional Work-up Planned (e.g. ADM/Transfer/OP Study) (admit obs.) - Data Complexity MDM Data: Labs Ordered and/or Reviewed, X-Ray Ordered and/or Reviewed (CXR two view No acute abnormality per ED physician.), EKG Ordered and/or Reviewed - Lab Data Result diagrams: 06/22/17 18:35 06/22/17 18:35 - EKG Data -: EKG Interpreted by Al EKG: LBBB (New from prior of 06-05-17, however just had aortic valve replaced since prior EKG.) Disposition Disposition: Admit Clinical Impression: Aortic valve disease, Dizziness Diabetes mellitus Qualifiers: Diabetes mellitus type: type 1 Diabetes mellitus complication status: without complication Qualified Code(s): E10.9 - Type 1 diabetes mellitus without complications Disposition: Still a Patient at [facility] Decision to Admit: Admit from ER Decision to Admit Date: 06/22/17 Decision to Admit Time: 21:01 Accepting Physician: Dr. Cardona/ Marycruz, P.AEnoc Condition: (1) Good Forms: Patient Portal Access Quality - Quality Measures Quality Measures: N/A - Blood Pressure Screening Does Patient Have Any of the Following: No, Active Dx of HTN Blood Pressure Classification: Hypertensive Reading Systolic Measurement: 160 Diastolic Measurement: 73 Screening for High Blood Pressure: Patient Exclusion, Hx of HTN [G9744]
[2017-06-22 18:49] LABS: BASO % 0.6 % (0-6); EOS % 3.9 % (0-6); GRAN % 65.7 % (47-80); HEMATOCRIT 37.4 % (35.0-47.0); HEMOGLOBIN 12.3 gm/dl (11.6-16.0); LYMPH % 18.2 % (16-45); MEAN CELL VOLUME 90.1 fl (81-97); MEAN CORPUSCULAR HEMOGLOBIN 29.6 pg (27-33); MEAN CORPUSCULAR HGB CONC 32.9 g/dl (32-36); MEAN PLATELET VOLUME 9.1 fl (7.4-10.4); MONO % 11.6 % (0-9); PLATELET COUNT 253 K/uL (130-400); RED BLOOD COUNT 4.15 M/uL (3.80-5.40); RED CELL DISTRIBUTION WIDTH 13.1 % (11.5-14.5); WHITE BLOOD COUNT W/O DIFF 6.7 K/uL (4.2-12.2)
[2017-06-22 19:05] LABS: PROTHROMBIN TIME (PATIENT) 10.8 SECONDS (9.5-12.1)
[2017-06-22 19:14] LABS: ALB/GLOB RATIO 1.5 (1.1-1.8); ALBUMIN 4.3 g/dL (4.0-5.0); ALKALINE PHOSPHATASE 50 U/L (35-104); ALT/SGPT 9 U/L (<33); AST/SGOT 17 U/L (10.0-35.0); BLOOD UREA NITROGEN 15 mg/dL (8-23); CREATININE 0.8 mg/dL (0.5-0.9); EST GLOMERULAR FILTRATION RATE > 60 mL/min; GLUCOSE,RANDOM 224 mg/dL (74-109); TOTAL PROTEIN 7.1 g/dL (6.6-8.7)
[2017-06-22 19:15] LABS: ACETONE,SERUM NEGATIVE (NEGATIVE); LACTIC ACID 1.1 mmol/L (0.5-2.2)
[2017-06-22 19:21] LABS: URINE APPEARANCE CLEAR; URINE BILIRUBIN NEGATIVE (NEGATIVE); URINE BLOOD NEGATIVE (NEGATIVE); URINE COLOR YELLOW; URINE KETONE NEGATIVE (NEGATIVE); URINE LEUKOCYTE ESTERASE NEGATIVE (NEGATIVE); URINE NITRITE NEGATIVE (NEGATIVE); URINE PROTEIN NEGATIVE (NEGATIVE); URINE UROBILINOGEN 0.2 E.U./dL (0.20 - 1.00)
[2017-06-22] MEDS ORDERED: ACETAMINOPHEN 500 MG TABLET PO PRN (21:53)
[2017-06-22] MEDS ORDERED: DICLOFENAC SODIUM 100 GM TP SCH (21:53)
[2017-06-22] MEDS ORDERED: 0.9 % SODIUM CHLORIDE 1000ML 1,000 ML IV PRN (21:53)
[2017-06-22] MEDS ORDERED: ACETAMINOPHEN 325 MG TAB PO SCH (21:53)
[2017-06-22] MEDS ORDERED: MECLIZINE 25 MG TABLET PO PRN (21:53)
[2017-06-22] MEDS ORDERED: AL HYDROX/MAG HYDROX 30ML UD PO PRN (21:53)
[2017-06-22] MEDS ORDERED: CLOTRIMAZOLE 1% 30 GM CREAM TP SCH (21:53)
[2017-06-22] MEDS ORDERED: NITROGLYCERIN 0.4MG SL TABLET #25 BTL SL PRN (21:53)
[2017-06-22] MEDS ORDERED: METFORMIN 500 MG TABLET PO PRN (21:53)
[2017-06-22] MEDS ORDERED: TEMAZEPAM 15 MG CAPSULE PO PRN (21:53)
[2017-06-22] MEDS ORDERED: METOPROLOL TART 50 MG TABLET PO SCH (22:00)
[2017-06-22] MEDS ORDERED: FLUTICASONE PROPIONATE 50MCG NASAL 16 GM BTL SCH (23:00)
--- NOTE | 2017-06-23 07:29 | RADIOLOGY REPORT ---
EXAM: CHEST, TWO VIEWS HISTORY: RECENT AORTIC VALVE REPLACEMENT. TECHNIQUE: Two views of the chest were obtained. Comparison: 12/04/06. FINDINGS: Previous median sternotomy and CABG. Prosthetic aortic valve is noted. The cardiomediastinal silhouette is stable. The lungs and pleural spaces are clear. Mild eventration of the anterior right hemidiaphragm, unchanged. IMPRESSION: NO ACUTE CARDIOPULMONARY ABNORMALITY. PREVIOUS MEDIAN STERNOTOMY AND CABG. AORTIC VALVE REPLACEMENT. JOB NUMBER: [id number] MTDD
[2017-06-23] MEDS ORDERED: HUMULIN N KWIKPEN 100 UNIT/ML SQ SCH ×2 (08:00→09:45)
[2017-06-23] MEDS ORDERED: NOVOLOG FLEXPEN (INSULIN ASPART) 100 UNITS/ML SQ SCH ×2 (08:00→09:45)
[2017-06-23] MEDS ORDERED: NITROGLYCERIN 0.4MG SL TABLET #25 BTL SL PRN (08:30)
[2017-06-23] MEDS ORDERED: BENAZEPRIL 20 MG TABLET PO SCH (10:00)
[2017-06-23] MEDS ORDERED: MULTIVITAMINS/MINERALS TABLET PO SCH (10:00)
[2017-06-23] MEDS ORDERED: FLUTICASONE PROPIONATE 50MCG NASAL 16 GM BTL SCH (10:00)
[2017-06-23] MEDS ORDERED: METOPROLOL TART 25 MG TABLET PO SCH (10:00)
[2017-06-23] MEDS ORDERED: OMEGA PO SCH (10:00)
[2017-06-23] MEDS ORDERED: ASPIRIN 81 MG CHEWABLE TABLET PO SCH (10:00)
[2017-06-23] MEDS ORDERED: LEVOTHYROXINE SODIUM 100 MCG TABLET PO SCH (10:00)
[2017-06-23] MEDS ORDERED: FATTY ACIDS PO SCH (10:00)
[2017-06-23] MEDS ORDERED: CLOPIDOGREL 75MG TABLET PO SCH (10:00)
[2017-06-23] MEDS ORDERED: HYDROCORTISONE HC CR 28.35 GM TUBE TOP SCH (10:00)
[2017-06-23] MEDS ORDERED: FISH OIL PO SCH (10:00)
--- NOTE | 2017-06-23 11:51 | History & Physical ---
History of Present Illness - Date of Service Date of Service for History & Physical: 06/23/17 - History of Present Illness Admitting Diagnosis: status post aortic valve replacement; dizziness; DM type I History of Present Illness: 82yo female with CC of transient dizziness. She has history of CAD with CABG, HTN, T1DM, hypothyroidism and severe aortic stenosis s/p TAVR on 06/11/17. Patient presented to the ED with one episode of feeling off-balance. She has had poor sleeping habits for the past year and 8 months, since her , which continue to this day. She woke today very early, couldn't sleep, got up , went back to bed after eating breakfast, and slept 3 hours. While walking around her house around noontime today she developed a gradual onset of dizziness, which she describes as a motion type off balance feeling, along with generalized weakness in all extremities, mostly her legs. She did NOT develop CP, IVAN, N, Diaphoresis, SOB, slurred speech, unilateral weakness, facial droop. She has never had CHF, PE, DVT, CVA. While in the ED, patient had EKG which demonstrated prolonged AK and new from her last visit in May a LBBB. Rate was in the high 60's and BP was 138/ 69. Patient had 1st set of cardiac enzymes which were normal. Her CXR showed her aortic valve replacement and previous sternotomy but no acute process. Patient was given antivert with resolution of symptoms. ED physician discussed with [facility] on-call Dr. Winters and patient was admitted for serial enzymes. 06/23/17- patient very upset that she has been hospitalized for so long. Wishes she had never come in. States she wants to know what the back-up is and why nothing has been done. She says her dizziness went away yesterday and hasn't returned. she has not had any headache, vision changes, chest pain, shortness of breath, nausea, sweating episodes, or feeling unbalanced. says she has been up to the bathroom without assistance. Has a very important appointment at 1pm and must be there. says she will leave AMA if she has to. Travel Screening - Travel/Exposure Within Last 30 Days Have you traveled within the last 30 days?: No - Travel/Exposure Within Last Year Have you traveled outside the [place] in the last year?: No - Additonal Travel Details Have you been exposed to anyone with a communicable illness?: No Review of Systems Constitutional: Denies: Chills, Fever, Weakness Eyes: Denies: Photophobia, Vision change ENT: Denies: Congestion, Ear pain, Throat pain Respiratory: Denies: Cough, Dyspnea, Stridor, Wheezes Cardiovascular: Denies: Chest pain, Dyspnea on exertion, Edema, Palpitations Endocrine: Denies: Fatigue, Polydipsia, Polyuria Gastrointestinal: Denies: Abdominal pain, Constipation, Diarrhea, Nausea Musculoskeletal: Denies: Arthralgia Skin: Denies: Change in color Neurological: Reports: Vertigo. Denies: Confusion, Headache, Numbness, Paresthesias, Tingling, Weakness Psychiatric: Reports: Depression. Denies: Anxiety Hematological/Lymphatic: Denies: Blood Clots Past Medical History - SOCIAL HISTORY Smoking Status: Never smoker Alcohol Use: None Drug Use: None - RESPIRATORY Hx Respiratory Disorders: No - CARDIOVASCULAR Hx Cardio Disorders: Yes Hx Heart Attack: Yes (x2) Hx Hypertension: Yes - NEURO Hx Neuro Disorders: No - GI Hx GI Disorders: No - Hx Genitourinary Disorders: No - ENDOCRINE Hx Endocrine Disorders: Yes Hx Diabetes: Yes (DM I) Hx Thyroid Disease: Yes (Hypothyroid) - MUSCULOSKELETAL Hx Musculoskeletal Disorders: Yes Hx Arthritis: Yes - PSYCH Hx Psych Problems: Yes Hx Depression: Yes - HEMATOLOGY/ONCOLOGY Hx Hematology/Oncology Disorders: No Family Medical History Any Significant Family History?: Yes Hx Cancer: Mother Hx Diabetes: Father, Mother, Grandparents Hx Heart Disease: Brother/Sister Hx Stroke: Grandparents H&P Meds/Allergies - Allergies Allergies: Allergies Allergy/AdvReac Type Severity Reaction Status Date / Time amoxicillin Allergy PT UNSURE Verified 10/02/15 22:44 OF REACTION amoxicillin trihydrate Allergy PT UNSURE Verified 10/02/15 22:44 [From Augmentin] OF REACTION azithromycin Allergy PT UNSURE Verified 10/02/15 22:44 OF REACTION cephalexin Allergy PT UNSURE Verified 10/02/15 22:44 OF REACTION clindamycin Allergy PT UNSURE Verified 10/02/15 22:44 OF REACTION hydrocodone bitartrate Allergy PT UNSURE Verified 10/02/15 22:44 [From Vicodin] OF REACTION potassium clavulanate Allergy PT UNSURE Verified 10/02/15 22:44 [From Augmentin] OF REACTION shrimp Allergy NAUSEA Verified 05/19/17 04:13 - Home Medications Previous Rx's Medication Instructions Recorded Meclizine HCl [Antivert] 25 mg PO BID PRN #20 tab 06/23/17 - Active Medications Active Medications: Current Medications Acetaminophen (Tylenol 500mg Tab) 500 mg PO Q6H PRN PRN Reason: PAIN/TEMP Al Hydroxide/Mg Hydroxide (Maalox) 30 ml PO Q4H PRN PRN Reason: GI UPSET Aspirin (Aspirin Chewable) 81 mg PO DAILY [facility] Last Admin: 06/23/17 11:05 Dose: 81 mg Atorvastatin Calcium (Lipitor) 80 mg PO QHS [facility] Benazepril HCl (Lotensin) 5 mg PO DAILY [facility] Last Admin: 06/23/17 11:05 Dose: 5 mg Clopidogrel Bisulfate (Plavix) 75 mg PO DAILY [facility] Last Admin: 06/23/17 11:05 Dose: 75 mg Clotrimazole (Lotrimin Af) 15 gm TP ASDIR [facility] Fluticasone Propionate (Flonase) 2 spray NA DAILY [facility] Hydrocortisone (Proctosol-Hc) 28.35 gm TOP BID [facility] Sodium Chloride () 1,000 mls @ 42 mls/hr IV .[id number] PRN PRN Reason: LARGE VOLUME IV Last Admin: 06/22/17 23:21 Dose: 42 mls/hr Insulin Aspart (Novolog Flexpen) 3 unit SQ DAILYWM [facility] Last Admin: 06/23/17 11:18 Dose: 3 unit Insulin Human NPH (Humulin N Kwikpen) 10 unit SQ DAILYWM [facility] Last Admin: 06/23/17 11:16 Dose: 10 unit Levothyroxine Sodium (Synthroid) 100 mcg PO DAILYTHY [facility] Last Admin: 06/23/17 11:15 Dose: 100 mcg Meclizine HCl (Antivert) 25 mg PO Q8H PRN PRN Reason: Dizziness Metformin HCl (Glucophage Ir) 500 mg PO BID PRN PRN Reason: Hyperglycemica Metoprolol Tartrate (Lopressor) 25 mg PO BID [facility] Last Admin: 06/23/17 11:06 Dose: 25 mg Multivitamins/Minerals (Centrum) 1 tab PO DAILY [facility] Last Admin: 06/23/17 11:05 Dose: 1 tab Nitroglycerin (Nitrostat 0.4mg) 0.4 mg SL Q5MIN PRN PRN Reason: Chest Pain Non-Formulary Medication (Diclofenac Sodium [Voltaren]) 100 gm TP ASDIR FE Non-Formulary Medication ([place]-3 Fatty Acids/Fish Oil [Fish Oil 1,000 Mg Capsule]) 1,200 mg PO DAILY FE Temazepam (Restoril) 15 mg PO QHS PRN PRN Reason: INSOMNIA Physical Exam - Vital Signs Vital Signs: Vital Signs - Last 24 Hrs Temp Pulse Resp BP BP Pulse Ox 06/23/17 07:00 97.9 F 59 L 18 138/69 97 06/23/17 03:35 98 F 60 18 132/80 97 06/22/17 23:53 98 F 61 18 125/62 99 06/22/17 23:02 67 20 06/22/17 21:54 98.1 F 67 20 132/58 95 06/22/17 21:53 98.4 F 70 18 140/76 98 - General General Appearance: Alert, Oriented x3, Cooperative, No acute distress, Other ( pleasant smiling female appearing much younger than her states age) Limitations: No limitations - Head Head exam: Normal inspection - Eye Eye exam: Normal appearance, PERRL Pupils: Normal accommodation - ENT ENT exam: Normal exam, Mucous membranes moist, Normal external ear exam, Normal orophraynx, TM's normal bilaterally Ear exam: Normal external inspection. negative: External canal tenderness Nasal Exam: Normal inspection. negative: Discharge, Sinus tenderness Mouth exam: Normal external inspection, Tongue normal Teeth exam: Normal inspection. negative: Dental caries Throat exam: Normal inspection. negative: Tonsillar erythema, Tonsillar exudate - Neck Neck exam: Normal inspection, Full ROM, Other (no JVD noted). negative: Tenderness - Respiratory Respiratory exam: Normal lung sounds bilaterally. negative: Respiratory distress - Cardiovascular Cardiovascular Exam: Regular rate, Normal rhythm, Normal heart sounds, Gallop, Systolic murmur - GI/Abdominal GI/Abdominal exam: Soft, Normal bowel sounds. negative: Tenderness - Rectal Rectal exam: Deferred - exam: Deferred - Extremities Extremities exam: Normal inspection, Full ROM, Normal capillary refill. negative: Calf tenderness, Pedal edema, Tenderness - Back Back exam: Reports: Normal inspection, Full ROM. Denies: CVA tenderness (R), CVA tenderness (L), Muscle spasm, Rash noted, Tenderness - Neurological Neurological exam: Alert, CN II-XII intact, Normal gait, Oriented X3, Reflexes normal - Psychiatric Psychiatric exam: Normal affect, Normal mood - Skin Skin exam: Dry, Intact, Normal color, Warm Results - Labs Result Diagrams: 06/22/17 18:35 06/22/17 18:35 Labs Last 24 Hours: Laboratory Results - last 24 hr 06/22/17 06/23/17 06/23/17 22:00 02:30 07:23 POC Glucose 232 H 212 H Troponin T < 0.010 - Imaging and Cardiology Chest x-ray Status: Report reviewed (no acute process) VTE H&P Assessment - Risk for VTE Risk for VTE: Yes Risk Level: Low Risk Assessment Date: 06/23/17 Risk Assessment Time: 19:38 VTE Orders Placed or Will Be Placed: No VTE Reason for No Prophylaxis: Contraindicated (on plavix and asa) Plan - Detailed Diagnosis and Plan (1) Left bundle branch block Status: Acute Base Code: I44.7 - LEFT BUNDLE-BRANCH BLOCK, UNSPECIFIED Comment: 06/23/17- obtained records from recent hospitalization at [facility] for TAVR of the aortic valve on 06/11/17. per the discharge note, patient developed her LBBB with AK prolongation the night after her aortic valve replacement 06/12/17. For that reason, she had internal 30 day monitor placed that continues to monitor. She is also set to follow up with Dr. Hines for this as well. Her AK continues to be similar to what it had been at while at [facility]. no arrhythmias noted. HR remains 69-77 bpm and BP remains >120/80. Her last stress test and cardiac catheterization were in May 2017. -I discussed this with Dr. Milligan, who was listed as on-call for [facility] today. He also reviewed her records that he had access to and confirmed that this was not a new finding and that she does continue to have the 30-day monitor going. We also discussed that all 3 sets of CE returned wnl range and patient is not symptomatic. Therefore, he agreed that from a cardiac stand point she just needed to continue the monitor and follow up with Dr. Hines on 07/10/17 as previously scheduled. She also has repeat echocardiogram scheduled at that time. (2) Vertigo Status: Acute Base Code: R42 - DIZZINESS AND GIDDINESS Comment: 06/23/17- resolved. Do not feel this is cardiac in origin. See note on LBBB. Additionally , she has no focal neurological findings on exam. The dizziness was associated with movement and improved with rest. Resolved with one dose of antivert. -will send home with antivert 25mg po bid prn. -she will call to schedule follow up with her pcp - She is adamant about leaving the hospital by 1pm for an appointment. I have agreed to discharge her because I do feel she is medically stable, however, I spent 10 minutes counseling patient that if her symptoms were to change or become more severe she needs to return to ED to be reassessed. She voiced her understanding. Furthermore, I recommended she schedule follow up with her pcp for the vertigo in addition to the appointment she has with her bowstring maker. (3) DVT prophylaxis Status: Acute Base Code: [id number] - Comment: 06/23/17- patient on dual antiplatelet therapy currently. She is ambulatory and will be discharged with < 24H of restricted mobility. (4) Full code status Status: Acute Base Code: Z78.9 - OTHER SPECIFIED HEALTH STATUS Comment: - will remain full code during this hospitalization
--- NOTE | 2017-06-23 11:58 | Discharge Summary ---
Providers Discharge Summary Date: 06/23/17 Date of admission: 06/22/17 21:39 Expected Date of Discharge: 06/23/17 Attending physician: Alphonso Cardona Primary care physician: Kandi Worthington Physical Exam - Vital Signs Vital Signs: Vital Signs - Last 24 Hrs Temp Pulse Resp BP BP Pulse Ox 06/23/17 07:00 97.9 F 59 L 18 138/69 97 06/23/17 03:35 98 F 60 18 132/80 97 06/22/17 23:53 98 F 61 18 125/62 99 06/22/17 23:02 67 20 06/22/17 21:54 98.1 F 67 20 132/58 95 06/22/17 21:53 98.4 F 70 18 140/76 98 - General General Appearance: Alert, Oriented x3, Cooperative, No acute distress, Other ( pleasant smiling female appearing much younger than her states age) Limitations: No limitations - Head Head exam: Normal inspection - Eye Eye exam: Normal appearance, PERRL Pupils: Normal accommodation - ENT ENT exam: Normal exam, Mucous membranes moist, Normal external ear exam, Normal orophraynx, TM's normal bilaterally Ear exam: Normal external inspection. negative: External canal tenderness Nasal Exam: Normal inspection. negative: Discharge, Sinus tenderness Mouth exam: Normal external inspection, Tongue normal Teeth exam: Normal inspection. negative: Dental caries Throat exam: Normal inspection. negative: Tonsillar erythema, Tonsillar exudate - Neck Neck exam: Normal inspection, Full ROM, Other (no JVD noted). negative: Tenderness - Respiratory Respiratory exam: Normal lung sounds bilaterally. negative: Respiratory distress - Cardiovascular Cardiovascular Exam: Regular rate, Normal rhythm, Normal heart sounds, Systolic murmur - GI/Abdominal GI/Abdominal exam: Soft, Normal bowel sounds. negative: Tenderness - Rectal Rectal exam: Deferred - exam: Deferred - Extremities Extremities exam: Normal inspection, Full ROM, Normal capillary refill. negative: Calf tenderness, Pedal edema, Tenderness - Back Back exam: Reports: Normal inspection, Full ROM. Denies: CVA tenderness (R), CVA tenderness (L), Muscle spasm, Rash noted, Tenderness - Neurological Neurological exam: Alert, CN II-XII intact, Normal gait, Oriented X3, Reflexes normal - Psychiatric Psychiatric exam: Normal affect, Normal mood - Skin Skin exam: Dry, Intact, Normal color, Warm Hospitalization - Hospitalization Admission Diagnosis: status post aortic valve replacement; dizziness; DM type I - Problem List/Discharge Diagnosis (1) Left bundle branch block Status: Acute Base Code: I44.7 - LEFT BUNDLE-BRANCH BLOCK, UNSPECIFIED Comment: 06/23/17- obtained records from recent hospitalization at [facility] for TAVR of the aortic valve on 06/11/17. per the discharge note, patient developed her LBBB with OK prolongation the night after her aortic valve replacement 06/12/17. For that reason, she had internal 30 day monitor placed that continues to monitor. She is also set to follow up with Dr. Hines for this as well. Her OK continues to be similar to what it had been at while at [facility]. no arrhythmias noted. HR remains 69-77 bpm and BP remains >120/80. Her last stress test and cardiac catheterization were in May 2017. -I discussed this with Dr. Milligan, who was listed as on-call for [facility] today. He also reviewed her records that he had access to and confirmed that this was not a new finding and that she does continue to have the 30-day monitor going. We also discussed that all 3 sets of CE returned wnl range and patient is not symptomatic. Therefore, he agreed that from a cardiac stand point she just needed to continue the monitor and follow up with Dr. iHnes on 07/10/17 as previously scheduled. She also has repeat echocardiogram scheduled at that time. (2) Vertigo Status: Acute Base Code: R42 - DIZZINESS AND GIDDINESS Comment: 06/23/17- resolved. Do not feel this is cardiac in origin. See note on LBBB. Additionally , she has no focal neurological findings on exam. The dizziness was associated with movement and improved with rest. Resolved with one dose of antivert. -will send home with antivert 25mg po bid prn. -she will call to schedule follow up with her pcp - She is adamant about leaving the hospital by 1pm for an appointment. I have agreed to discharge her because I do feel she is medically stable, however, I spent 10 minutes counseling patient that if her symptoms were to change or become more severe she needs to return to ED to be reassessed. She voiced her understanding. Furthermore, I recommended she schedule follow up with her pcp for the vertigo in addition to the appointment she has with her snuff box finisher. (3) DVT prophylaxis Status: Acute Base Code: [id number] - Comment: 06/23/17- patient on dual antiplatelet therapy currently. She is ambulatory and will be discharged with < 24H of restricted mobility. (4) Full code status Status: Acute Base Code: Z78.9 - OTHER SPECIFIED HEALTH STATUS Comment: - will remain full code during this hospitalization - Hospitalization Course Disposition: Home, Self-Care Hospital Course: 82yo female with CC of transient dizziness. She has history of CAD with CABG, HTN, T1DM, hypothyroidism and severe aortic stenosis s/p TAVR on 06/11/17. Patient presented to the ED with one episode of feeling off-balance. She has had poor sleeping habits for the past year and 8 months, since her , which continue to this day. She woke today very early, couldn't sleep, got up , went back to bed after eating breakfast, and slept 3 hours. While walking around her house around noontime today she developed a gradual onset of dizziness, which she describes as a motion type off balance feeling, along with generalized weakness in all extremities, mostly her legs. She did NOT develop CP, IVAN, N, Diaphoresis, SOB, slurred speech, unilateral weakness, facial droop. She has never had CHF, PE, DVT, CVA. While in the ED, patient had EKG which demonstrated prolonged OK and new from her last visit in May a LBBB. Rate was in the high 60's and BP was 138/ 69. Patient had 1st set of cardiac enzymes which were normal. Her CXR showed her aortic valve replacement and previous sternotomy but no acute process. Patient was given antivert with resolution of symptoms. ED physician discussed with [facility] on-call Dr. Winters and patient was admitted for serial enzymes. 06/23/17- patient very upset that she has been hospitalized for so long. Wishes she had never come in. States she wants to know what the back-up is and why nothing has been done. She says her dizziness went away yesterday and hasn't returned. she has not had any headache, vision changes, chest pain, shortness of breath, nausea, sweating episodes, or feeling unbalanced. says she has been up to the bathroom without assistance. Has a very important appointment at 1pm and must be there. says she will leave AMA if she has to. Abnormal Labs: Abnormal Lab Results 06/22/17 06/23/17 Range/Units 22:00 07:23 POC Glucose 232 H 212 H (70-110) mg/dL Condition at Discharge: (2) Stable Discharge Medications - Discharge Medications Prescriptions: Meclizine HCl [Antivert] 25 mg PO BID PRN #20 tab PRN Reason: Dizziness Home Medications: Ambulatory Orders Aspirin Chewable 81 mg PO DAILY 10/02/15 [Last Taken Unknown] Benazepril HCl [Lotensin] 5 mg PO DAILY 10/02/15 [Last Taken Unknown] Clopidogrel Bisulfate [Plavix] 75 mg PO DAILY 10/02/15 [Last Taken Unknown] Insulin Lispro [Humalog] 5 unit SQ DAILYWM 10/02/15 [Last Taken Unknown] Insulin NPH Human Isophane [Humulin N] 10 unit SQ DAILYWM 10/02/15 [Last Taken Unknown] Levothyroxine Sodium [Synthroid] 100 mcg PO DAILY 10/02/15 [Last Taken Unknown] Metformin HCl 500 mg PO BID PRN 10/02/15 [Last Taken Unknown] Metoprolol Tartrate [Lopressor] 25 mg PO BID 10/02/15 [Last Taken Unknown] Nitroglycerin [Nitrostat] 0.4 mg SL ASDIR PRN 10/02/15 [Last Taken Unknown] Rosuvastatin Calcium [Crestor] 20 mg PO DAILY 10/02/15 [Last Taken Unknown] Acetaminophen [Tylenol 325Mg] 325 mg PO NOW 05/19/17 [Last Taken Unknown] Clotrimazole [Itch Relief] 15 gm TP ASDIR 05/19/17 [Last Taken Unknown] Diclofenac Sodium [Voltaren] 100 gm TP ASDIR 05/19/17 [Last Taken Unknown] Fluticasone Propionate [Flonase] 2 spray EACH NARES DAILY 05/19/17 [Last Taken Unknown] Hydrocortisone [Proctozone-Hc] 30 gm TP ASDIR 05/19/17 [Last Taken Unknown] Multivitamin [Multi-Vitamin Daily] 1 each PO DAILY 05/19/17 [Last Taken Unknown] [place]-3 Fatty Acids/Fish Oil [Fish Oil 1,000 mg Capsule] 1,200 mg PO DAILY 05/19 [Last Taken Unknown] Meclizine HCl [Antivert] 25 mg PO BID PRN #20 tab 06/23/17 [Last Taken Unknown] Discharge Plan - Discharge Instructions Activity at Discharge: Resume Usual Activities As Tolerated Diet at Discharge: Diabetic Diet Instructions: Dizziness (GEN) Additional Instructions: 2 Activity: Resume Usual Activities As Tolerated 2 Diet: Diabetic Diet 2 Consults: [] 2 Follow Up: [Please follow up with Dr. Hines as scheduled on July 10. ] 2 Dressing/Wound Care: (Type) (Change) 2 Additional: [] Continue home medications as prescribed May use antivert 25mg by mouth as needed up to twice daily for dizziness Please call with any questions or concerns Return to ED for any new or worsening symptoms Quality Measures - Quality Measures Quality Measures: Advance Directives, Documentation of Current Medications in Medical Record, Elder Maltreatment Screen and Follow-Up Plan, Screening for High Blood Pressure and F/U Documented - Current Medications Quality Measure: Measure #130: Documentation of Current Medications Documentation of Current Medications: <Current Medications Documented/Reviewed> [[id number]] - Blood Pressure Screening Quality Measure: Screening for High Blood Pressure and Follow-Up Documented Does Patient Have Any of the Following: Active Dx of HTN Blood Pressure Classification: Hypertensive Reading Systolic Measurement: 160 Diastolic Measurement: 73 Screening for High Blood Pressure: Patient Exclusion, Hx of HTN [G9744] - Advance Directives Quality Measure: Measure #47: Care Plan Advance Directives Established: No Advance Directives Information Provided To Patient: No Advance Directives on File: No Advance Care Planning: <Care Plan/Decision Maker Not Decided; Discussed & Documented> [[id number]] - Elder Abuse Suspicion Index Screening: Elder Abuse Suspicion Index Screening Rely on people for bathing, dressing, shopping, banking, etc: No Prevented from getting food, clothes, medication, etc: No Made to feel shamed or threatened by someone: No Forced to sign papers or use money against will: No Feel afraid, touched in ways not wanted or hurt physically: No Poor eye contact, withdrawn, malnourished, cuts or bruises: No Screening Result: Negative result EASI Reference Information: Alo LIZARRAGA, Tito Bowling, Alverto Suero, Maryann Rao.Development and validation of a tool to assist physicians identification of elder abuse: The Elder Abuse Suspicion Index (EASI ). Journal of Elder Abuse and Neglect, 2008; 20 (3): 276-300. - Elder Maltreatment Screen Quality Measures: Elder Maltreatment Screen and Follow-Up Plan Elder Maltreatment Screen: <Negative, No Follow-Up Plan Required> [G6125]
[2017-06-23] MEDS ORDERED: ATORVASTATIN 20 MG TABLET PO SCH (22:00)
== END 2017-06-23 12:25 | disposition home or self-care (01) ==
LOC: ER 16:35 → MEDSURG 21:39
PROVIDERS: ADMIT Internal Medicine; ATTEND Internal Medicine
DX: R42 Dizziness and giddiness (principal); I44.7 Left bundle-branch block, unspecified; Z95.4 Presence of other heart-valve replacement; E11.9 Type 2 diabetes mellitus without complications; Z79.4 Long term (current) use of insulin; I25.810 Atherosclerosis of coronary artery bypass graft(s) without angina pectoris; I10 Essential (primary) hypertension; E03.9 Hypothyroidism, unspecified; R53.1 Weakness
CPT/HCPCS: 93041; 99285 ×2; 83605; 83735; 82800; 85025; 85730; 85610; 80053; 36416 ×2; 82009; 82948 ×2; 81003; 84484 ×2; 85379; 83880; 71020; 93005 ×2; 93010 ×2; G0378 ×2; J3490; J1815 ×2; 99217; 99220

== ENCOUNTER 2018-01-31 11:11 | Emergency (ER) | payer MEDICARE ==
--- NOTE | 2018-01-31 12:49 | Emergency Department Record ---
History of Present Illness - General Chief complaint: Allergic Reaction Stated complaint: POSSIBLE ALLERGIC REACTION TO MEDS Time Seen by Provider: 01/31/18 12:24 Source: Patient Mode of Arrival: Ambulatory Limitations: No limitations - History of Present Illness Initial Comments: pt had strep recently and was on penicllin. she then had her tooth pulled and she was placed on clindamycin which she is allergic to, now she has a rash on her r shoulder that is painful. MD Complaint: Other Onset/Timin -: Days(s) Symptoms: Rash, Other Severity: Mild Previous Allergy History: None - Related Data Previous Rx's Medication Instructions Recorded Famciclovir 500 mg PO Q8HR #21 tablet 01/31/18 Levofloxacin [Levaquin Tab] 500 mg PO DAILY #7 tab 01/31/18 Allergies Allergy/AdvReac Type Severity Reaction Status Date / Time amoxicillin Allergy PT UNSURE Verified 01/31/18 12:00 OF REACTION amoxicillin trihydrate Allergy PT UNSURE Verified 01/31/18 12:00 [From Augmentin] OF REACTION azithromycin Allergy PT UNSURE Verified 01/31/18 12:00 OF REACTION cephalexin Allergy PT UNSURE Verified 01/31/18 12:00 OF REACTION clindamycin Allergy PT UNSURE Verified 01/31/18 12:00 OF REACTION hydrocodone bitartrate Allergy PT UNSURE Verified 01/31/18 12:00 [From Vicodin] OF REACTION potassium clavulanate Allergy PT UNSURE Verified 01/31/18 12:00 [From Augmentin] OF REACTION shrimp Allergy NAUSEA Verified 01/31/18 12:00 Travel Screening - Travel/Exposure Within Last 30 Days Have you traveled within the last 30 days?: No - Travel/Exposure Within Last Year Have you traveled outside the [place] in the last year?: No - Additonal Travel Details Have you been exposed to anyone with a communicable illness?: No - Travel Symptoms Symptom Screening: None Review of Systems Reviewed: No additional complaints except as noted below Constitutional: Reports: As per HPI. Denies: Chills, Fever, Malaise, Night sweats, Weakness, Weight change Eyes: Reports: As per HPI. Denies: Eye discharge, Eye pain, Photophobia, Vision change ENT: Reports: As per HPI, Throat pain. Denies: Congestion, Dental pain, Ear pain, Epistaxis, Hearing loss Respiratory: Reports: As per HPI, Cough. Denies: Dyspnea, Hemoptysis, Stridor, Wheezes Cardiovascular: Reports: As per HPI. Denies: Arrhythmia, Chest pain, Dyspnea on exertion, Edema, Murmurs, Orthopnea, Palpitations, Paroxysmal nocturnal dyspnea, Rheumatic Fever, Syncope Endocrine: Reports: As per HPI. Denies: Fatigue, Heat or cold intolerance, Polydipsia, Polyuria Gastrointestinal: Reports: As per HPI. Denies: Abdominal pain, Constipation, Diarrhea, Hematemesis, Hematochezia, Melena, Nausea, Vomiting Genitourinary: Reports: As per HPI. Denies: Abnormal menses, Discharge, Dyspareunia, Dysuria, Frequency, Hematuria, Incontinence, Retention, Urgency Musculoskeletal: Reports: As per HPI. Denies: Arthralgia, Back pain, Gout, Joint swelling, Myalgia, Neck pain Skin: Reports: As per HPI, Rash. Denies: Bruising, Change in color, Change in hair/nails, Lesions, Pruritus Neurological: Reports: As per HPI. Denies: Abnormal gait, Confusion, Headache, Numbness, Paresthesias, Seizure, Tingling, Tremors, Vertigo, Weakness Psychiatric: Reports: As per HPI. Denies: Anxiety, Auditory hallucinations, Depression, Homicidal thoughts, Suicidal thoughts, Visual hallucinations Hematological/Lymphatic: Reports: As per HPI. Denies: Anemia, Blood Clots, Easy bleeding, Easy bruising, Swollen glands Past Medical History - SOCIAL HISTORY Smoking Status: Never smoker Alcohol Use: None Drug Use: None - RESPIRATORY Hx Respiratory Disorders: No - CARDIOVASCULAR Hx Cardio Disorders: Yes Hx Heart Attack: Yes (x2) Hx Hypertension: Yes Comment:: mitral valve replacement - NEURO Hx Neuro Disorders: No - GI Hx GI Disorders: No - Hx Genitourinary Disorders: No - ENDOCRINE Hx Endocrine Disorders: Yes Hx Diabetes: Yes (DM I) Hx Thyroid Disease: Yes (Hypothyroid) - MUSCULOSKELETAL Hx Musculoskeletal Disorders: Yes Hx Arthritis: Yes - PSYCH Hx Psych Problems: Yes Hx Depression: Yes - HEMATOLOGY/ONCOLOGY Hx Hematology/Oncology Disorders: No Family Medical History Any Significant Family History?: No Hx Cancer: Mother Hx Diabetes: Father, Mother, Grandparents Hx Heart Disease: Brother/Sister Hx Stroke: Grandparents Physical Exam - General General Appearance: Alert, Oriented x3, Cooperative, Mild distress - Head Head exam: Normal inspection - Eye Eye exam: Normal appearance, PERRL, EOMI Pupils: Normal accommodation - ENT ENT exam: Normal exam, Mucous membranes moist, Normal external ear exam, Normal orophraynx, TM's normal bilaterally Ear exam: Normal external inspection. negative: External canal tenderness Nasal Exam: Normal inspection, Other (healing extraction). negative: Discharge , Sinus tenderness Mouth exam: Normal external inspection, Tongue normal Teeth exam: Normal inspection. negative: Dental caries Throat exam: Normal inspection. negative: Tonsillar erythema, Tonsillar exudate - Neck Neck exam: Normal inspection, Full ROM. negative: Tenderness - Respiratory Respiratory exam: Normal lung sounds bilaterally. negative: Respiratory distress - Cardiovascular Cardiovascular Exam: Regular rate, Normal rhythm, Normal heart sounds - GI/Abdominal GI/Abdominal exam: Soft, Normal bowel sounds. negative: Tenderness - Rectal Rectal exam: Deferred - exam: Deferred - Extremities Extremities exam: Normal inspection, Full ROM, Normal capillary refill. negative: Tenderness - Back Back exam: Reports: Normal inspection, Full ROM. Denies: Muscle spasm, Rash noted, Tenderness - Neurological Neurological exam: Alert, CN II-XII intact, Normal gait, Oriented X3 - Psychiatric Psychiatric exam: Normal affect, Normal mood - Skin Skin exam: Dry, Intact, Normal color, Rash, Warm Type of lesion: Rash Distribution of rash: Neck, RUE Description of rash: Confluent, Vesicular Course Vital Signs 01/31/18 11:46 Temperature 98.5 F Pulse Rate 70 Respiratory 18 Rate Blood Pressure 150/95 Pulse Ox 97 Disposition Disposition: Discharge Clinical Impression: Shingles Qualifiers: Herpes zoster complications: without complications Qualified Code(s): B02.9 - Zoster without complications Pneumonia Qualifiers: Pneumonia type: due to unspecified organism Laterality: left Lung location: lower lobe of lung Qualified Code(s): J18.1 - Lobar pneumonia, unspecified organism Disposition: Home, Self-Care Condition: (1) Good Instructions: Shingles (ED), Pneumonitis (ED) Additional Instructions: follow up with family doctor. return sooner if worse. have repeat chest x-ray in 3 days. Prescriptions: Famciclovir 500 mg PO Q8HR #21 tablet Levofloxacin [Levaquin Tab] 500 mg PO DAILY #7 tab Forms: Patient Portal Access Quality - Quality Measures Quality Measures: N/A - Blood Pressure Screening Does Patient Have Any of the Following: No Blood Pressure Classification: Hypertensive Reading Systolic Measurement: 150 Diastolic Measurement: 95 Screening for High Blood Pressure: < First Hypertensive BP, F/U Documented > [ [id number]] First Hypertensive Follow-up Interventions: Follow-up with rescreen GT 1 day and LT 4 weeks.
--- NOTE | 2018-02-02 08:21 | RADIOLOGY REPORT ---
EXAM: CHEST, TWO VIEWS HISTORY: COUGH. TECHNIQUE: Two views of the chest were obtained. Comparison: Chest x-ray 06/22/17. FINDINGS: There is a slight increased opacity in the left lower lobe. The lung volumes are increased. The cardiomediastinal silhouette is within normal limits. A transcatheter aortic valve replacement is noted. 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 No pleural effusion or pneumothorax. The bony structures are unremarkable. IMPRESSION: LEFT LOWER LOBE AIR SPACE DISEASE. RECOMMEND FOLLOW-UP RADIOGRAPHS IN FOUR TO SIX WEEKS. JOB NUMBER: [id number] [facility]
== END 2018-01-31 14:15 | disposition home or self-care (01) ==
LOC: ER 11:11
DX: J18.9 Pneumonia, unspecified organism (principal); B02.9 Zoster without complications; I10 Essential (primary) hypertension; E11.9 Type 2 diabetes mellitus without complications; I25.2 Old myocardial infarction; Z79.4 Long term (current) use of insulin; Z79.01 Long term (current) use of anticoagulants
CPT/HCPCS: 71046; 87880; 99283